=== PATIENT | female | born 1965 | race Caucasian/White ===

== ENCOUNTER 2023-02-26 12:49 | Emergency (ER) | payer OTHER ==
[2023-02-26 13:08] VITALS: BP 136/83; PULSE 76; RESP 18; TEMP 98.3; BMI 26.4
[2023-02-26] MEDS ORDERED: IBUPROFEN 600 MG TABLET (FP) PO ONE ×2 (14:26→14:28)
[2023-02-26] MEDS ORDERED: ACETAMINOPHEN 500 MG TABLET (FP) PO ONE (14:26)
[2023-02-26] MEDS ORDERED: ACETAMINOPHEN 500 MG TABLET (FP) ONE (14:28)
== END 2023-02-26 17:17 | disposition home or self-care (01) ==
LOC: JERFT 12:49
DX: M79.641 Pain in right hand (principal); G47.9 Sleep disorder, unspecified; M71.341 Other bursal cyst, right hand
CPT/HCPCS: 73130-TC-RT-FY; 99283-25